=== PATIENT | female | born 1950 | race Caucasian/White ===

== ENCOUNTER 2019-07-14 16:12 | Emergency (ER) | payer MEDICARE ==
[2019-07-14 16:58] LABS: Appearance,Urine Clear (Clear); Bilirubin,Urine Negative (Negative); Blood,Urine Negative (Negative); Color,Urine Yellow; Glucose,Urine (UA) Negative (Negative); Ketones,Urine Negative (Negative); Leukocyte Esterase,Urine Small (Negative); Mucus,Urine Rare /hpf; Nitrite,Urine Negative (Negative); Protein,Urine Negative (Negative); RBC,Urine 3 /hpf (0-5); Specific Gravity,Urine 1.019 (1.001-1.035); Urobilinogen,Urine <2.0 mg/dL (<2.0); WBC,Urine 3 /hpf (0-5)
[2019-07-14] MEDS ORDERED: SODIUM CHLORIDE 0.9% 1,000 ML IV STA (16:58)
[2019-07-14] MEDS ORDERED: SODIUM CHLORIDE 0.9% 500 ML 500 ML IV STA (16:58)
[2019-07-14] MEDS ORDERED: KETOROLAC 30 MG/ML 1 ML VIAL IVP STA (17:00)
--- NOTE | 2019-07-14 17:02 | ED ---
Abdominal Pain HPI - General Chief Complaint: Abdominal Pain Stated Complaint: abdominal pain Time Seen by Provider: 07/14/19 16:49 Source: patient, RN notes reviewed Mode of arrival: ambulatory Limitations: no limitations - History of Present Illness Initial Comments: This is an 69-year-old female history of hysterectomy in the past who states she had the onset around 11:30 AM this morning of mid and mid lower abdominal pain crampy in nature 6/10 severity he comes in waves lasting several minutes. Does not seem to radiate to the back or flank no nausea no vomiting. No fevers no chills or sweats. Breathing does not make it worse movement does not make him worse. She does have a history in addition to hysterectomy of urinary tract infections with similar symptoms and also history of kidney stones. Patient states she thinks she has irritable bowel also. Patient states she did have a colonoscopy done about 6 months ago which apparently was unremarkable she does believe she was told she had diverticulosis in the past. She later stated that she did have a polyp that was small and removed during this colonoscopy. She denies any overt constipation or diarrhea at this time. No other complaints or modifying factors at this time MD Complaint: abdominal pain - Related Data Home Medications Medication Instructions Recorded Confirmed Multivitamins, Thera [Multivitamin 1 tab PO DAILY 07/14/19 07/14/19 (formulary)] Vit C/E/Zn/Coppr/Lutein/Zeaxan 1 cap PO DAILY 07/14/19 07/14/19 [Preservision Areds 2 Softgel] Previous Rx's Medication Instructions Recorded Dicyclomine [Bentyl] 10 mg PO TID #15 capsule 07/14/19 Ketorolac [Toradol] 10 mg PO Q6HR #20 tab 07/14/19 Allergies Allergy/AdvReac Type Severity Reaction Status Date / Time No Known Allergies Allergy Verified 07/14/19 16:54 Review of Systems ROS Statement: Those systems with pertinent positive or pertinent negative responses have been documented in the HPI. ROS Other: All systems not noted in ROS Statement are negative. Past Medical History Past Medical History: No Reported History History of Any Multi-Drug Resistant Organisms: None Reported Past Surgical History: Hysterectomy Additional Past Surgical History / Comment(s): D&C Past Psychological History: No Psychological Hx Reported Smoking Status: Former smoker Past Alcohol Use History: Occasional Past Drug Use History: None Reported General Exam - General Exam Comments Initial Comments: This is a well-developed well-nourished awake alert oriented 3 female Limitations: no limitations General appearance: alert, in no apparent distress Head exam: Present: atraumatic, normocephalic, normal inspection Eye exam: Present: normal appearance, PERRL, EOMI. Absent: scleral icterus, conjunctival injection, periorbital swelling ENT exam: Present: normal exam, mucous membranes moist Neck exam: Present: normal inspection. Absent: tenderness, meningismus, lymphadenopathy Respiratory exam: Present: normal lung sounds bilaterally. Absent: respiratory distress, wheezes, rales, rhonchi, stridor Cardiovascular Exam: Present: regular rate, normal rhythm, normal heart sounds. Absent: systolic murmur, diastolic murmur, rubs, gallop, clicks GI/Abdominal exam: Present: soft, tenderness (Some tenderness palpation of the mid abdomen. No guarding or rebound.), normal bowel sounds. Absent: distended, guarding, rebound, rigid, bruit, pulsatile mass Extremities exam: Present: normal inspection, full ROM, normal capillary refill. Absent: tenderness, pedal edema, joint swelling, calf tenderness Back exam: Present: normal inspection Neurological exam: Present: alert, oriented X3, CN II-XII intact Psychiatric exam: Present: normal affect, normal mood Skin exam: Present: warm, dry, intact, normal color. Absent: rash Course Vital Signs 07/14/19 16:19 Temperature 98 F Pulse Rate 92 Respiratory 18 Rate Blood Pressure 135/105 O2 Sat by Pulse 97 Oximetry Medical Decision Making - Medical Decision Making Patient did get relief from the pain from most part with the Toradol shot. We did discuss options for further evaluation she would require request that she be allowed to go home she will be placed on nonsteroidals as well as Bentyl she will follow-up with her doctor and return if any problems. Her is in agreement - Lab Data Result diagrams: 07/14/19 17:11 07/14/19 17:11 Lab Results 07/14/19 07/14/19 07/14/19 Range/Units 16:25 17:11 17:11 WBC 5.7 (3.8-10.6) k/uL RBC 4.92 (3.80-5.40) m/uL Hgb 14.7 (11.4-16.0) gm/dL Hct 43.4 (34.0-46.0) % MCV 88.1 (80.0-100.0) fL MCH 29.8 (25.0-35.0) pg MCHC 33.8 (31.0-37.0) g/dL RDW 15.6 H (11.5-15.5) % Plt Count 214 (150-450) k/uL Neutrophils % 70 % Lymphocytes % 22 % Monocytes % 3 % Eosinophils % 2 % Basophils % 1 % Neutrophils # 4.0 (1.3-7.7) k/uL Lymphocytes # 1.3 (1.0-4.8) k/uL Monocytes # 0.2 (0-1.0) k/uL Eosinophils # 0.1 (0-0.7) k/uL Basophils # 0.1 (0-0.2) k/uL Sodium 142 (137-145) mmol/L Potassium 4.0 (3.5-5.1) mmol/L Chloride 105 (98-107) mmol/L Carbon Dioxide 24 (22-30) mmol/L Anion Gap 13 mmol/L BUN 15 (7-17) mg/dL Creatinine 0.66 (0.52-1.04) mg/dL Est GFR (CKD-EPI)AfAm >90 (>60 ml/min/1.73 sqM) Est GFR (CKD-EPI)NonAf >90 (>60 ml/min/1.73 sqM) Glucose 136 H (74-99) mg/dL Calcium 10.9 H (8.4-10.2) mg/dL Magnesium 1.9 (1.6-2.3) mg/dL Total Bilirubin 0.3 (0.2-1.3) mg/dL AST 31 (14-36) U/L ALT 40 (9-52) U/L Alkaline Phosphatase 92 (38-126) U/L Creatine Kinase 96 (30-135) U/L Total Protein 8.3 H (6.3-8.2) g/dL Albumin 5.0 (3.5-5.0) g/dL Amylase 52 (30-110) U/L Lipase 117 (23-300) U/L Urine Color Yellow Urine Appearance Clear (Clear) Urine pH 5.0 (5.0-8.0) Ur Specific Powell 1.019 (1.001-1.035) Urine Protein Negative (Negative) Urine Glucose (UA) Negative (Negative) Urine Ketones Negative (Negative) Urine Blood Negative (Negative) Urine Nitrite Negative (Negative) Urine Bilirubin Negative (Negative) Urine Urobilinogen <2.0 (<2.0) mg/dL Ur Leukocyte Esterase Small H (Negative) Urine RBC 3 (0-5) /hpf Urine WBC 3 (0-5) /hpf Urine Mucus Rare H (None) /hpf - Radiology Data Radiology results: report reviewed (I did review the imaging and report no acute findings or is evidence of a small kidney stone that is nonobstructive.), image reviewed Disposition Clinical Impression: Spastic colon, Abdominal pain Disposition: HOME SELF-CARE Condition: Good Instructions (If sedation given, give patient instructions): Abdominal Pain (ED), Irritable Bowel Syndrome (ED) Prescriptions: Dicyclomine [Bentyl] 10 mg PO TID #15 capsule Ketorolac [Toradol] 10 mg PO Q6HR #20 tab Is patient prescribed a controlled substance at d/c from ED?: No Referrals: Jimi Crystal MD [Primary Care Provider] - 1-2 days
[2019-07-14 17:25] LABS: Basophils # (A) 0.1 k/uL (0-0.2); Basophils % (A) 1 %; Eosinophils # (A) 0.1 k/uL (0-0.7); Eosinophils % (A) 2 %; HCT 43.4 % (34.0-46.0); HGB 14.7 gm/dL (11.4-16.0); Lymphocytes # (A) 1.3 k/uL (1.0-4.8); Lymphocytes % (A) 22 %; MCH 29.8 pg (25.0-35.0); MCHC 33.8 g/dL (31.0-37.0); MCV 88.1 fL (80.0-100.0); Mean Platelet Volume 8.1; Monocytes # (A) 0.2 k/uL (0-1.0); Monocytes % (A) 3 %; Neutrophils % (A) 70 %; Platelet Count 214 k/uL (150-450); RBC 4.92 m/uL (3.80-5.40); RDW 15.6 % (11.5-15.5); WBC 5.7 k/uL (3.8-10.6)
[2019-07-14 17:38] LABS: ALT 40 U/L (9-52); AST 31 U/L (14-36); African American GFR (CKD) >90 (>60 ml/min/1.73 sqM); Alkaline Phosphatase 92 U/L (38-126); Amylase 52 U/L (30-110); Anion Gap 13 mmol/L; Blood Urea Nitrogen 15 mg/dL (7-17); Calcium 10.9 mg/dL (8.4-10.2); Carbon Dioxide 24 mmol/L (22-30); Chloride 105 mmol/L (98-107); Creatine Kinase 96 U/L (30-135); Glucose 136 mg/dL (74-99); Magnesium 1.9 mg/dL (1.6-2.3); Sodium 142 mmol/L (137-145); Total Bilirubin 0.3 mg/dL (0.2-1.3); Total Protein 8.3 g/dL (6.3-8.2)
--- NOTE | 2019-07-14 18:08 | XR ---
Abdomen 2 views upright. History abdominal pain. Comparison none. FINDINGS: There is some pulmonary hyperinflation and flattening of the diaphragm. There are calcifications over the left kidney up to 6 mm. There are multiple surgical clips over the pelvis. There is no evidence of a mass. There is no sign of intestinal obstruction or pneumoperitoneum. IMPRESSION: Left renal calculi. Nonacute abdomen.
[2019-07-14] MEDS ORDERED: DICYCLOMINE 20 MG TAB PO STA (19:08)
[2019-07-14 19:27] VITALS: BP 158/89; PULSE 75; RESP 18; TEMP 98
== END 2019-07-14 19:32 | disposition home or self-care (01) ==
LOC: EC 16:12
DX: K58.9 Irritable bowel syndrome, unspecified (principal); Z87.891 Personal history of nicotine dependence; Z90.710 Acquired absence of both cervix and uterus; Z87.440 Personal history of urinary (tract) infections; Z87.442 Personal history of urinary calculi; Z86.010 Personal history of colon polyps; Z98.890 Other specified postprocedural states
CPT/HCPCS: 99284; 96374; 96361 ×2; 36415; 80053; 82150; 82550; 83690; 83735; 85025; 81001; 74018; J1885